=== PATIENT | male | born 1970 | race Caucasian/White ===

== ENCOUNTER 2017-09-28 11:39 | Emergency (ER) | payer OTHER ==
[2017-09-28 12:08] VITALS: BP 137/90; PULSE 73; TEMP 98.3; BMI 22.1
--- NOTE | 2017-09-28 14:08 | PDOC ---
History of Present Illness - General Chief Complaint: Wound Stated Complaint: ABSCESS BOIL Time Seen by Provider: 09/28/17 13:46 History Source: Patient Exam Limitations: No Limitations - History of Present Illness Initial Comments: 09/28/17 14:21 She came for evaluation of abscess to right posterior neck x 3 days, some fevers and pain. Had admission for [facility] last year and was worried was same type of infection. Timing/Duration: reports: getting worse Severity: Yes: mild, moderate Location: reports: other (neck ) Respiratory Risk Factors: reports: no cause identified Associated Symptoms: reports: fever Past History - Travel Traveled outside of the country in the last 30 days: No Close contact w/someone who was outside of country & ill: No - Past Medical History Allergies/Adverse Reactions: Allergies Allergy/AdvReac Type Severity Reaction Status Date / Time Penicillins Allergy Hives Verified 09/28/17 12:08 Home Medications: Ambulatory Orders Meloxicam [Mobic] 15 mg PO DAILY 03/12/16 Sulfamethoxazole/Trimethoprim [Bactrim *Ds*] 1 each PO BID #14 tablet 09/28/17 Anemia: No Asthma: No Cancer: (H/O BRAIN TUMOR) Cardiac Disorders: Yes CVA: No COPD: No CHF: No Dementia: Yes Diabetes: No GI Disorders: No Disorders: No HTN: Yes Hypercholesterolemia: Yes Liver Disease: No Seizures: Yes Thyroid Disease: No - Surgical History Abdominal Surgery: No Appendectomy: No Cardiac Surgery: No Cholecystectomy: No Lung Surgery: No Neurologic Surgery: No Orthopedic Surgery: Yes (left knee ARTHROSCOPY) - Suicide/Smoking/Psychosocial Hx Smoking History: Former smoker Have you smoked in the past 12 months: No If you are a former smoker, when did you quit?: 12 YEARS Information on smoking cessation initiated: No Hx Alcohol Use: No Drug/Substance Use Hx: No Substance Use Type: None Hx Substance Use Treatment: No Review of Systems - Review of Systems Able to Perform ROS?: Yes Is the patient limited Azerbaijani proficient: Yes Constitutional: Yes: Symptoms Reported, See HPI, Fever, Malaise HEENTM: No: Symptoms Reported Respiratory: No: Symptoms reported Integumentary: Yes: Symptoms Reported, See HPI, Change in Hair/Nails, Lesions ( painful fluctuant lesion to right posterior neck at the hairline) Neurological: Yes: Symptoms reported, See HPI All Other Systems: Reviewed and Negative *Physical Exam - Vital Signs Last Vital Signs Temp Pulse Resp BP Pulse Ox 98.3 F 73 12 137/90 100 09/28/17 12:05 09/28/17 12:05 09/28/17 12:05 09/28/17 12:05 09/28/17 12:05 - Physical Exam General Appearance: Yes: Nourished, Appropriately Dressed, Apparent Distress, Mild Distress HEENT: positive: PATTIE, TMs Normal, Pharynx Normal, Nasal Congestion, Rhinorrhea. negative: Sinus Tenderness Neck: positive: Tender, Lymphadenopathy (R), Lymphadenopathy (L) Respiratory/Chest: positive: Lungs Clear Cardiovascular: positive: Regular Rate Gastrointestinal/Abdominal: positive: Normal Bowel Sounds, Soft Musculoskeletal: positive: Normal Inspection. 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 intact, Fully Oriented, Alert, Normal Mood/ Affect, Normal Response Procedures - Incision and Drainage I&D Site: Right: Other (posterior neck) Anesthesia: 1% Lidocaine Blade Size: 11 Iodinated Packin/4 in Complications: none Dressing: Yes Progress Note - Progress Note Progress Note: Abscess to right neck, incised and drained, packed with iodoform gauze, started on Bactrim *DC/Admit/Observation/Transfer Diagnosis at time of Disposition: Abscess - Discharge Dispostion Disposition: HOME Condition at time of disposition: Stable Admit: No - Referrals Referrals: Lakia Grewal MD [Primary Care Provider] - - Patient Instructions Printed Discharge Instructions: DI for Skin Abscess Additional Instructions: Rest, keep area elevated. Avoid strenuous activity or exercise until wound is healed Use hot soaks to area to bring more blood to the surface and encourage drainage May change dressings as needed to keep clean - trying to avoid removal of packing for 2 days. If packing needs to be changed, return to emergency department or with your followup physician for wound care and evaluation and repacking as needed If packing needs to be removed, then in 2 days, while in the shower remove dressing and quickly pull the packing taken out. Allow water from shower to wash area thoroughly for 2-3 minutes, and pat dry upon exit of shower and replace dressing. Change his dressing daily until the wound is completely healed. May use Tylenol or Motrin for mild pain relief Use stronger medications as directed and prescribed Continue all medications as prescribed Followup with private physician in 2-3 days for wound check Return to emergency Department for worsening swelling, pain, redness, fevers as needed - Post Discharge Activity
[2017-09-28] MEDS ORDERED: SULFAMETHOXAZOLE/TRIMETHOPRIM 800MG/160MG D.S. TABLET PO ONE (14:37)
[2017-09-28] MEDS ORDERED: IBUPROFEN 400 MG TABLET (FP) PO ONE ×2 (14:37→14:47)
[2017-09-28] MEDS ORDERED: SULFAMETHOXAZOLE/TRIMETHOPRIM 800MG/160MG D.S. TABLET ONE (14:47)
== END 2017-09-28 14:59 | disposition home or self-care (01) ==
LOC: JERFT 11:39
PROC: 0J940ZZ Drainage of Right Neck Subcutaneous Tissue and Fascia, Open Approach (ICD-10-PCS; principal; 2017-09-28)
DX: L02.11 Cutaneous abscess of neck (principal)
CPT/HCPCS: 10060; 99281-25

== ENCOUNTER 2017-09-30 10:06 | Emergency (ER) | payer OTHER ==
[2017-09-30 10:25] VITALS: BP 111/77; PULSE 85; TEMP 98; BMI 22.3
--- NOTE | 2017-09-30 12:07 | PDOC ---
History of Present Illness - General Chief Complaint: Revisit,Wound Recheck Stated Complaint: REVISIT/ PACKAGE DRESSING Time Seen by Provider: 09/30/17 11:51 History Source: Patient Exam Limitations: No Limitations - History of Present Illness Initial Comments: 09/30/17 12:23 47-year-old male presents the ED for the wound check. Patient states had an I&D done with packing in here for removal. Patient states continue to take the Bactrim as prescribed and denies fever, pain and states symptoms are improving. Severity: Yes: mild Associated Symptoms: reports: denies symptoms Past History - Travel Traveled outside of the country in the last 30 days: No - Past Medical History Allergies/Adverse Reactions: Allergies Allergy/AdvReac Type Severity Reaction Status Date / Time Penicillins Allergy Hives Verified 09/30/17 10:21 Home Medications: Ambulatory Orders Meloxicam [Mobic] 15 mg PO DAILY 03/12/16 Sulfamethoxazole/Trimethoprim [Bactrim *Ds*] 1 each PO BID #14 tablet 09/28/17 Anemia: No Asthma: No Cancer: (H/O BRAIN TUMOR) Cardiac Disorders: Yes CVA: No COPD: No CHF: No Dementia: Yes Diabetes: No GI Disorders: No Disorders: No HTN: Yes Hypercholesterolemia: Yes Liver Disease: No Seizures: Yes Thyroid Disease: No - Surgical History Abdominal Surgery: No Appendectomy: No Cardiac Surgery: No Cholecystectomy: No Lung Surgery: No Neurologic Surgery: No Orthopedic Surgery: Yes (left knee ARTHROSCOPY) - Suicide/Smoking/Psychosocial Hx Smoking History: Former smoker Have you smoked in the past 12 months: No If you are a former smoker, when did you quit?: 12 YEARS Information on smoking cessation initiated: No Hx Alcohol Use: No Drug/Substance Use Hx: No Substance Use Type: None Hx Substance Use Treatment: No Patient Lives Alone: No Review of Systems - Review of Systems Able to Perform ROS?: Yes Constitutional: No: Symptoms Reported HEENTM: No: Symptoms Reported Respiratory: No: Symptoms reported Musculoskeletal: No: Symptoms Reported Integumentary: No: Symptoms Reported Neurological: No: Symptoms reported *Physical Exam - Vital Signs Last Vital Signs Temp Pulse Resp BP Pulse Ox 98 F 85 19 111/77 97 09/30/17 10:21 09/30/17 10:21 09/30/17 10:21 09/30/17 10:21 09/30/17 10:21 - Physical Exam General Appearance: Yes: Nourished, Appropriately Dressed. No: Apparent Distress Neck: positive: Supple. negative: Lymphadenopathy (R), Lymphadenopathy (L) Integumentary: positive: Other (Packing removed from right lower cervical wound without difficulty. Surrounding skin pain. No palpable fluctuance no increased warmth no drainage. Shay) Neurologic: positive: Normal Mood/Affect, Motor Strength 5/5 Medical Decision Making - Medical Decision Making 09/30/17 12:26 Patient here for wound check to the right lower neck. Patient has no complaints presently. Area cleansed with normal saline and placed cause with paper tape to area. Patient understands to clean the area daily and given enough supplies to continue this for the next 7 days. Patient also understands to continue his antibiotics and to return to ED if he develops any fever, swelling or drainage from the site. *DC/Admit/Observation/Transfer Diagnosis at time of Disposition: Open wound of neck Qualifiers: Encounter type: sequela Qualified Code(s): S11.90XS - Unspecified open wound of unspecified part of neck, sequela - Discharge Dispostion Disposition: HOME Condition at time of disposition: Improved - Referrals Referrals: Lakia Grewal MD [Primary Care Provider] - - Patient Instructions Printed Discharge Instructions: DI for Wound Infection Additional Instructions: Please cleanse daily as instructed after bathing in the morning and use supplies given to here in the ER. Understand to return to the ED any given time to develop any swelling redness or drainage from the site. Take antibiotics until completed. - Post Discharge Activity
== END 2017-09-30 12:31 | disposition home or self-care (01) ==
LOC: JERFT 10:06
DX: Z48.01 Encounter for change or removal of surgical wound dressing (principal)
CPT/HCPCS: 99281-25

== ENCOUNTER 2018-01-01 11:45 | Emergency (ER) | payer OTHER ==
[2018-01-01 11:53] VITALS: BP 122/80; PULSE 91; TEMP 98.2; BMI 18.2
--- NOTE | 2018-01-01 12:18 | PDOC ---
History of Present Illness - General Chief Complaint: Headache Stated Complaint: HEADACHES Time Seen by Provider: 01/01/18 12:03 History Source: Patient Exam Limitations: No Limitations - History of Present Illness Initial Comments: 01/01/18 13:26 Patient is a 47-year-old male with past medical history of brain tumor, who presents emergency department today with 2 weeks of headache and facial pain. Patient states he was seen by his primary care doctor and diagnosed with a sinus infection. He was given fluticasone nasal spray and discharged home. He states that the spray has not helped and is giving him bloody noses. Denies fevers, chills, lightheadedness, dizziness, weakness, numbness and tingling. Past History - Travel Traveled outside of the country in the last 30 days: No Close contact w/someone who was outside of country & ill: No - Past Medical History Allergies/Adverse Reactions: Allergies Allergy/AdvReac Type Severity Reaction Status Date / Time Penicillins Allergy Hives Verified 01/01/18 11:53 Home Medications: Ambulatory Orders Doxycycline Hyclate 100 mg PO BID #14 tablet 01/01/18 Ibuprofen 600 mg PO TID #21 tablet 01/01/18 Anemia: No Asthma: No Cancer: (H/O BRAIN TUMOR) Cardiac Disorders: Yes CVA: No COPD: No CHF: No Dementia: Yes Diabetes: No GI Disorders: No Disorders: No HTN: Yes Hypercholesterolemia: Yes Liver Disease: No Seizures: Yes Thyroid Disease: No - Surgical History Abdominal Surgery: No Appendectomy: No Cardiac Surgery: No Cholecystectomy: No Lung Surgery: No Neurologic Surgery: No Orthopedic Surgery: Yes (left knee ARTHROSCOPY) - Suicide/Smoking/Psychosocial Hx Smoking History: Never smoked Have you smoked in the past 12 months: No If you are a former smoker, when did you quit?: 12 YEARS Information on smoking cessation initiated: No Hx Alcohol Use: No Drug/Substance Use Hx: No Substance Use Type: None Hx Substance Use Treatment: No Review of Systems - Review of Systems Able to Perform ROS?: Yes Comments:: 01/01/18 12:17 CONSTITUTIONAL: Absent: fever, chills, diaphoresis, generalized weakness, malaise, loss of appetite HEENT: Present: facial pain Absent: rhinorrhea, nasal congestion, throat pain, throat swelling, difficulty swallowing, mouth swelling, ear pain, eye pain, visual Changes CARDIOVASCULAR: Absent: chest pain, loss of consciousness, palpitations, irregular heart rate, peripheral edema RESPIRATORY: Absent: cough, shortness of breath, dyspnea with exertion, orthopnea, wheezing, stridor, hemoptysis SKIN: Absent: rash, itching, pallor NEUROLOGIC: Present: headache Absent: focal weakness or paresthesias, dizziness, unsteady gait, seizure, mental status changes, bladder or bowel incontinence Is the patient limited Pashto proficient: No *Physical Exam - Vital Signs Last Vital Signs Temp Pulse Resp BP Pulse Ox 98.2 F 91 H 16 122/80 100 01/01/18 11:49 01/01/18 11:49 01/01/18 11:49 01/01/18 11:49 01/01/18 11:49 - Physical Exam Comments: 01/01/18 12:18 GENERAL: Well developed, well nourished. Awake and alert. No acute distress. HEENT: Normocephalic, atraumatic. PERRLA, EOMI. No conjunctival pallor. Sclera are non- icteric. Moist mucous membranes. Oropharynx is clear. TTP of the frontal and maxillary sinuses NECK: Supple. Full ROM. No JVD. Carotid pulses 2+ and symmetric, without bruits. No thyromegaly. No lymphadenopathy. SKIN: Warm and dry. Normal capillary refill. No rashes. No jaundice. NEUROLOGICAL: Alert, awake, appropriate. Cranial nerves 2-12 intact. No deficits to light touch and temperature in face, upper extremities and lower extremities. No motor deficits in the in face, upper extremities and lower extremities. Normoreflexic in the upper and lower extremities. Normal speech. Toes are down- going bilaterally. Gait is normal without ataxia. PSYCHIATRIC: Cooperative. Good eye contact. Appropriate mood and affect. Medical Decision Making - Medical Decision Making 01/01/18 13:26 Patient is a 47-year-old male past medical history of a brain tumor, who presents to the emergency department with headache for 2 weeks. Currently being treated with fluticasone nasal spray for sinus infection. Head CT obtained and shows complete right opacification of the right maxillary sinus. We will treat for sinus infection at this time. Patient ALLERGIC to penicillin so we will treat with Doxy. Return precautions given. Patient worsens all discharge instructions and all questions were answered. *DC/Admit/Observation/Transfer Diagnosis at time of Disposition: Sinusitis Qualifiers: Sinusitis location: maxillary Chronicity: acute Recurrence: non-recurrent Qualified Code(s): J01.00 - Acute maxillary sinusitis, unspecified - Discharge Dispostion Disposition: HOME Condition at time of disposition: Stable Decision to Admit order: No - Prescriptions Prescriptions: Doxycycline Hyclate 100 mg PO BID #14 tablet - Referrals Referrals: Lakia Grewal MD [Primary Care Provider] - - Patient Instructions Printed Discharge Instructions: DI for Sinusitis Additional Instructions: You have a sinus infection. Please take the antibiotics as prescribed. A prescription has been sent to your pharmacy. Please continue using the fluticasone nasal spray at home. Use it as previously directed. In addition to the fluticasone please by normal saline nasal spray to help prevent nosebleeds. You may buy this over the counter. You may take Motrin 600 mg every 8 hours as needed for headache. Please follow-up with your primary care doctor this week. Return to the emergency department if you have worsening headaches, fevers, chills, lightheadedness, dizziness, or if you have any changes in your symptoms. Usted tiene francis infeccin sinusal. Por favor tome los antibiticos segn lo prescrito. Se acevedo enviado francis receta a kendall farmacia. Contine usando el aerosol nasal fluticasone en casa. selo arleen se indic anteriormente. Adems de la fluticasona, por favor, use un aerosol nasal de solucin salina para ayudar a prevenir las hemorragias nasales. Puede comprar esto en el mostrador. Puede madison Motrin 600 mg cada 8 horas, segn sea necesario para el dolor de nehal. Por favor paz un seguimiento con kendall mdico de atencin primaria esta semana. Regrese al departamento de emergencias si tiene empeoramiento de srinivasa de nehal, fiebre, escalofros, aturdimiento, mareos o si tiene algn cambio en nacho sntomas. Print Language: MAORI - Post Discharge Activity
[2018-01-01] MEDS ORDERED: ACETAMINOPHEN 325 MG TABLET (FP) PO ONE (12:38)
[2018-01-01] MEDS ORDERED: ACETAMINOPHEN 325 MG TABLET (FP) ONE (12:42)
== END 2018-01-01 13:43 | disposition home or self-care (01) ==
LOC: JERFT 11:45
DX: J01.00 Acute maxillary sinusitis, unspecified (principal); I10 Essential (primary) hypertension; E78.00 Pure hypercholesterolemia, unspecified; F03.90 Unspecified dementia, unspecified severity, without behavioral disturbance, psychotic disturbance, mood disturbance, and anxiety; Z85.841 Personal history of malignant neoplasm of brain
CPT/HCPCS: 70450-TC; 99281-25

== ENCOUNTER 2018-06-01 07:31 | Emergency (ER) | payer OTHER ==
[2018-06-01 07:49] VITALS: BP 150/81; PULSE 59; TEMP 98; BMI 23.6
--- NOTE | 2018-06-01 08:10 | PDOC ---
History of Present Illness - General Chief Complaint: Wound Stated Complaint: BITE Time Seen by Provider: 06/01/18 07:44 History Source: Patient, Security Attendant Used Exam Limitations: Language Barrier - History of Present Illness Initial Comments: 06/01/18 08:07 Pt is a 48yo m with PMH of epilepsy, glaucoma, arthritis, sinusitis presenting to ED with complaints of R sided scalp swelling and itching x 1 week. Pt says he has a lesion on the R side of his head associated with itching and R posterior ear pain. He does not know how it started. No one else in the household is having these symptoms and he does not have lesions elsewhere. He has not applied any topical products. Denies changes in vision, hearing, throat pain, fevers, chills, chest pain, SOB, abdominal pain, n/v/d. PCP: Pawel PMH: see hpi PSH: none Meds: Allergies: PCN Past History - Past Medical History Allergies/Adverse Reactions: Allergies Allergy/AdvReac Type Severity Reaction Status Date / Time Penicillins Allergy Hives Verified 06/01/18 07:49 Home Medications: Ambulatory Orders Doxycycline Hyclate 100 mg PO BID #14 capsule 01/01/18 Ibuprofen 600 mg PO TID #21 tablet 01/01/18 Sulfamethoxazole/Trimethoprim [Bactrim Ds -] 1 tab PO BID #14 tablet 06/01/18 Anemia: No Asthma: No Cancer: (H/O BRAIN TUMOR) Cardiac Disorders: Yes CVA: No COPD: No CHF: No Dementia: Yes Diabetes: No GI Disorders: No Disorders: No HTN: Yes Hypercholesterolemia: Yes Liver Disease: No Seizures: Yes Thyroid Disease: No - Surgical History Abdominal Surgery: No Appendectomy: No Cardiac Surgery: No Cholecystectomy: No Lung Surgery: No Neurologic Surgery: No Orthopedic Surgery: Yes (left knee ARTHROSCOPY) - Suicide/Smoking/Psychosocial Hx Smoking History: Never smoked Have you smoked in the past 12 months: No If you are a former smoker, when did you quit?: 12 YEARS Information on smoking cessation initiated: No Hx Alcohol Use: No Drug/Substance Use Hx: No Substance Use Type: None Hx Substance Use Treatment: No Review of Systems - Review of Systems Constitutional: No: Symptoms Reported HEENTM: Yes: Other (posterior ear pain). No: Eye Pain, Recent change in vision , Ear Pain, Ear Discharge, Nose Pain, Throat Pain Respiratory: No: Symptoms reported, Cough, Shortness of Breath Cardiac (ROS): No: Symptoms Reported ABD/GI: No: Symptoms Reported : No: Symptoms Reported Musculoskeletal: No: Symptoms Reported Integumentary: Yes: See HPI, Lesions (on R side of head associated with swelling and pruritis ) Neurological: No: Symptoms reported *Physical Exam - Vital Signs Last Vital Signs Temp Pulse Resp BP Pulse Ox 98.0 F 59 L 16 150/81 100 06/01/18 07:43 06/01/18 07:43 06/01/18 07:43 06/01/18 07:43 06/01/18 07:43 - Physical Exam General Appearance: Yes: Nourished, Appropriately Dressed. No: Apparent Distress HEENT: positive: EOMI, PATTIE, TMs Normal, Pharynx Normal Neck: positive: Trachea midline, Supple. negative: Lymphadenopathy (R), Lymphadenopathy (L) Respiratory/Chest: positive: Lungs Clear, Normal Breath Sounds. negative: Crackles, Rales, Rhonchi, Stridor Cardiovascular: positive: Regular Rhythm, Regular Rate, S1, S2. negative: Edema , JVD, Murmur Vascular Pulses: Carotid (R): 2+, Carotid (L): 2+, Dorsalis-Pedis (R): 2+, Doralis-Pedis (L): 2+ Gastrointestinal/Abdominal: positive: Normal Bowel Sounds, Soft. negative: Distended, Guarding, Rebound Musculoskeletal: positive: Normal Inspection Extremity: positive: Normal Capillary Refill Integumentary: positive: Normal Color, Dry, Warm, Other (raised, scabbing lesion to anterior R head around 2-3cm not erythematous, drainage of pus. ). 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 Vitals: wnl PE: raised scabbed 2-3cm lesion on R side of head with drainage of pus when pressure applied. no need for labs at this time, wound is superficial, not deep. no lesions elsewhere. expressed purulent drainage when pressure applied. drained as much as possible. Applied gauze. Pt given 1 dose of Bactrim in ED. Given 7 day course sent to pharmacy. Pt advised to see early childhood director. Can only get referral through PCP. PT going to pmd today anyway, asked to get derm referral. Pt can be dc home. pt agreed to plan. Advised to come back in 2 days for wound check. Given return precautions. *DC/Admit/Observation/Transfer Diagnosis at time of Disposition: Skin lesion - Discharge Dispostion Disposition: HOME Condition at time of disposition: Good Decision to Admit order: No - Prescriptions Prescriptions: Sulfamethoxazole/Trimethoprim [Bactrim Ds -] 1 tab PO BID #14 tablet - Referrals Referrals: Lakia Grewal MD [Primary Care Provider] - - Patient Instructions Additional Instructions: Lo vieron hoy aqu para evaluar francis lesin de piel en kendall nehal. yo Le sugiero que realice un seguimiento con un dermatlogo o kendall mdico de atencin primaria. Dado que tiene francis sandy con kendall mdico, asegrese de obtener francis derivacin a un dermatlogo. Dr. Crockett Se envi un antibitico a kendall farmacia. Por favor tome arleen se indica. Regrese a la estephania de emergencias en dos kim para francis revisin de la herida. Regrese a la estephania de emergencias si: la herida empeora, desarrolla fiebre o si se presenta algn sntoma nuevo. Shin You were seen here today for evaluation of a skin lesion on your head. I I suggest you follow up with a early childhood director or your primary care doctor. Since you have an appointment with your doctor, make sure you get a referral to a dermatogist. An antibiotic was sent to your pharmacy. Please take as directed. Come back to the emergency room in two days for a wound check. Come back to the emergency room if: the wound gets worse, you develop fever, or if any new concerning symptom develops. Thank you - Post Discharge Activity
[2018-06-01] MEDS ORDERED: SULFAMETHOXAZOLE/TRIMETHOPRIM 800MG/160MG D.S. TABLET PO ONE (08:22)
[2018-06-01] MEDS ORDERED: SULFAMETHOXAZOLE/TRIMETHOPRIM 800MG/160MG D.S. TABLET ONE (08:26)
--- NOTE | 2018-06-01 08:28 | PDOC ---
Attending Attestation - Resident Resident Name: Peggy Mcmahan - ED Attending Attestation I have performed the following: I have examined & evaluated the patient, The case was reviewed & discussed with the resident, I agree w/resident's findings & plan, Exceptions are as noted - HPI HPI: 06/01/18 08:23 48 M with epilepsy, glaucoma, arthritis, presenting to ED with complaints of lesion on R side of scalp x 1 week. Pt reports that he first noticed it last week. Denies any injury to the area. He states that it is itchy, so he has been scratching it. Over the past several days, it has become more swollen and red. He also notes scabbing over the lesion. Denies F/C. Denies any other lesions anywhere else. - Physicial Exam PE: 06/01/18 08:25 GENERAL: Awake, alert, and fully oriented, in no acute distress. HEAD: No signs of trauma EYES: PERRLA, EOMI, sclera anicteric, conjunctiva clear ENT: Auricles normal inspection, hearing grossly normal, nares patent, oropharynx clear without exudates. Moist mucosa NECK: Nontender, no stepoffs, Normal ROM, supple, no lymphadenopathy, JVD, or masses LUNGS: Breath sounds equal, clear to auscultation bilaterally. No wheezes, and no crackles HEART: Regular rate and rhythm, normal S1 and S2, no murmurs, rubs or gallops ABDOMEN: Soft, nontender, normoactive bowel sounds. No guarding, no rebound. No masses EXTREMITIES: Normal range of motion, no edema. No clubbing or cyanosis. No cords, erythema, or tenderness NEUROLOGICAL: Cranial nerves II through XII intact. 5/5 strength and sensation in all extremities, Normal speech, normal gait, normal cerebellar function SKIN: + 1 cm scabbed lesion with surrounding erythema, + scant amount of purulent discharge - Medical Decision Making 06/01/18 08:26 48 M with single scabbed lesion with purulent discharge to R scalp. Suspect insect bite vs folliculitis that is now super-infected. - Bactrim - Wound check in 48 hours - F/u Derm Pt is well appearing, with normal vitals. Clinically stable for DC at this time. I discussed the physical exam findings, ancillary test results and final diagnoses with the patient. I answered all of the patient's questions. The patient was satisfied with the care received and felt comfortable with the discharge plan and treatment plan. The patient agrees to follow up with the primary care physician within 24-72 hours.
== END 2018-06-01 08:33 | disposition home or self-care (01) ==
LOC: JER 07:31
DX: L98.8 Other specified disorders of the skin and subcutaneous tissue (principal); I10 Essential (primary) hypertension; E78.00 Pure hypercholesterolemia, unspecified; G40.909 Epilepsy, unspecified, not intractable, without status epilepticus; Z86.011 Personal history of benign neoplasm of the brain
CPT/HCPCS: 99281-25

== ENCOUNTER 2018-07-11 19:10 | Emergency (ER) | payer OTHER ==
[2018-07-11 19:17] VITALS: BP 133/89; PULSE 81; TEMP 98.6; BMI 26.1
--- NOTE | 2018-07-11 19:41 | PDOC ---
History of Present Illness - General Chief Complaint: Redness To Affected Area Stated Complaint: FALL/HAND INJURY Time Seen by Provider: 07/11/18 19:40 History Source: Patient Exam Limitations: No Limitations - History of Present Illness Initial Comments: 07/11/18 20:03 48 year old male with PMH HTN, arthritis presented to ED for redness to right hand since yesterday. Pt stated he was bit by an unknown insect yesterday, and since then has had redness, swelling and itching of his hand. He denied numbness /tingling, decreased ability to move fingers, nausea, vomiting, abdominal pain, lightheadedness, chest pain, shortness of breath. Pt admitted to subjective fever, but did not take his temperature at home. Past History - Past Medical History Allergies/Adverse Reactions: Allergies Allergy/AdvReac Type Severity Reaction Status Date / Time Penicillins Allergy Hives Verified 07/11/18 19:17 Home Medications: Ambulatory Orders Sulfamethoxazole/Trimethoprim [Bactrim Ds -] 1 tab PO BID #14 tablet 07/11/18 Anemia: No Asthma: No Cancer: (H/O BRAIN TUMOR) Cardiac Disorders: Yes CVA: No COPD: No CHF: No Dementia: Yes Diabetes: No GI Disorders: No Disorders: No HTN: Yes Hypercholesterolemia: Yes Liver Disease: No Seizures: Yes Thyroid Disease: No - Surgical History Abdominal Surgery: No Appendectomy: No Cardiac Surgery: No Cholecystectomy: No Lung Surgery: No Neurologic Surgery: No Orthopedic Surgery: Yes (left knee ARTHROSCOPY) - Suicide/Smoking/Psychosocial Hx Smoking History: Never smoked Have you smoked in the past 12 months: No If you are a former smoker, when did you quit?: 12 YEARS Hx Alcohol Use: No Drug/Substance Use Hx: No Substance Use Type: None Hx Substance Use Treatment: No Review of Systems - Review of Systems Able to Perform ROS?: Yes Comments:: 07/11/18 20:06 General: admitted to subjective fever. denied generalized weakness. HEENT: denied sore throat, rhinorrhea, ear pain. Heart: denied chest pain, palpitations, syncope, lower extremity swelling, diaphoresis. Respiratory: denied shortness of breath, cough, sputum production, hemoptysis. Abdomen: denied abdominal pain, nausea, vomiting, diarrhea, constipation, blood in stool. : denied dysuria, increased urinary frequency, hematuria, urinary incontinence , flank pain. Back: denied back pain. Musculoskeletal: admitted to right hand pain. Neurological: denied headache, dizziness, numbness, tingling, weakness. Skin: admitted to rash. *Physical Exam - Vital Signs Last Vital Signs Temp Pulse Resp BP Pulse Ox 98.6 F 81 18 133/89 99 07/11/18 19:14 07/11/18 19:14 07/11/18 19:14 07/11/18 19:14 07/11/18 19:14 - Physical Exam Comments: 07/11/18 20:07 Constitutional: Well-nourished, Well-developed, appearing stated age. HEENT: head is normocephalic, atraumatic. EOMI. PERRLA. Neck: supple. Full ROM. Heart: regular rhythm. no murmurs, rubs or gallops. Lungs: clear to auscultation bilaterally. no crackles, rhonchi or wheezing. no stridor. Abdomen: soft, nontender. normal bowel sounds. no rebound, guarding, masses. Extremities: two insect bite wounds to dorsum of right hand. 6x6 cm well demarcated area of erythema, that is tender to palpation. 2x2 cm central area of fluctuance and induration. 2+ radial pulse bilaterally. full sensation to bilateral fingers. no pain upon passive or active flexion/extension of right hand fingers. no swelling to right hand fingers. no pain along palpation of flexor tendon to all fingers of right hand. full ROM all fingers right hand. Neurological: CN 2-12 grossly intact. Moves all four extremities. Psych: awake, alert, oriented x3. Follows commands. Answers questions appropriately. Moderate Sedation - Procedure Monitoring Vital Signs: Procedure Monitoring Vital Signs Temperature 98.6 F 07/11/18 19:14 Pulse Rate 81 07/11/18 19:14 Respiratory Rate 18 07/11/18 19:14 Blood Pressure 133/89 07/11/18 19:14 O2 Sat by Pulse Oximetry (%) 99 07/11/18 19:14 Procedures - Incision and Drainage I&D Site: Right: Other (hand) Betadine cleansed: Yes Anesthesia: 1% Lidocaine Volume(ml): 6 Blade Size: 11 Attempts: 1 Plain Packing: No Complications: none Dressing: Yes Progress: 07/11/18 21:19 Minimal purlent material expressed. Blood expressed. ED Treatment Course - LABORATORY CBC & Chemistry Diagram: 07/11/18 20:07 07/11/18 20:07 Medical Decision Making - Medical Decision Making 07/11/18 20:09 48 year old male with above PMH presented to ED for right hand erythema s/p insect bites. Initial Vital Signs Temp Pulse Resp BP Pulse Ox 98.6 F 81 18 133/89 99 07/11/18 19:14 07/11/18 19:14 07/11/18 19:14 07/11/18 19:14 07/11/18 19:14 Afebrile. No tachycardia. No tachypnea. Mild hypertension. No hypoxia on room air. Pending CBC, CMP, coags, lactate. IV Clindamycin ordered. 07/11/18 20:31 Bedside ultrasound of right hand performed: - Cobblestoning noted. - 0.5x0.2 cm hypodense fluid collection noted consistent with abscess. Will drain abscess. 07/11/18 20:58 I&D performed, see above note. - Pt tolerated the procedure well. - Wound culture obtained and sent to lab CBC WBC 6.0 K/mm3 (4.0-10.0) 07/11/18 20:07 RBC 5.30 M/mm3 (4.00-5.60) 07/11/18 20:07 Hgb 14.5 GM/dL (11.7-16.9) 07/11/18 20:07 Hct 44.1 % (35.4-49) 07/11/18 20:07 MCV 83.2 fl (80-96) 07/11/18 20:07 MCH 27.3 pg (25.7-33.7) 07/11/18 20:07 MCHC 32.8 g/dl (32.0-35.9) 07/11/18 20:07 RDW 14.2 % (11.9-15.9) 07/11/18 20:07 Plt Count 185 K/MM3 (134-434) D 07/11/18 20:07 MPV 9.0 fl (7.5-11.1) 07/11/18 20:07 Absolute Neuts (auto) 4.5 K/mm3 (1.5-8.0) 07/11/18 20:07 Neutrophils % 75.8 % (42.8-82.8) 07/11/18 20:07 Lymphocytes % 16.5 % (8-40) D 07/11/18 20:07 Monocytes % 6.7 % (3.8-10.2) 07/11/18 20:07 Eosinophils % 0.5 % (0-4.5) 07/11/18 20:07 Basophils % 0.5 % (0-2.0) 07/11/18 20:07 Nucleated RBC % 0 % (0-0) 07/11/18 20:07 No leukocytosis. No anemia. CMP Sodium 138 mmol/L (136-145) 07/11/18 20:07 Potassium 4.0 mmol/L (3.5-5.1) 07/11/18 20:07 Chloride 101 mmol/L (98-107) 07/11/18 20:07 Carbon Dioxide 30 mmol/L (21-32) 07/11/18 20:07 Anion Gap 8 MMOL/L (8-16) 07/11/18 20:07 BUN 17 mg/dL (7-18) 07/11/18 20:07 Creatinine 0.9 mg/dL (0.55-1.3) 07/11/18 20:07 Creat Clearance w eGFR > 60 (>60) 07/11/18 20:07 Random Glucose 96 mg/dL (74-106) 07/11/18 20:07 Lactic Acid 1.1 mmol/L (0.4-2.0) 07/11/18 20:07 Calcium 8.7 mg/dL (8.5-10.1) 07/11/18 20:07 Total Bilirubin 0.6 mg/dL (0.2-1) 07/11/18 20:07 AST 16 U/L (15-37) 07/11/18 20:07 ALT 20 U/L (13-61) 07/11/18 20:07 Alkaline Phosphatase 83 U/L (45-117) 07/11/18 20:07 Total Protein 7.4 g/dl (6.4-8.2) 07/11/18 20:07 Albumin 4.1 g/dl (3.4-5.0) 07/11/18 20:07 Normal electrolytes. No CHON. No LFT abnormalities. No lactic acidosis. INR, PTT INR 1.05 (0.83-1.09) 07/11/18 20:07 Pt to be discharged on Bactrim. Pt informed to return to ED in 2 days for wound check. *DC/Admit/Observation/Transfer Diagnosis at time of Disposition: Cellulitis, Abscess - Discharge Dispostion Disposition: HOME Condition at time of disposition: Improved Decision to Admit order: No - Prescriptions Prescriptions: Sulfamethoxazole/Trimethoprim [Bactrim Ds -] 1 tab PO BID #14 tablet - Referrals - Patient Instructions Printed Discharge Instructions: DI for Cellulitis -- Adult, DI for Incision and Drainage of a Skin Abscess Additional Instructions: I have sent a prescription for an antibiotic to your pharmacy, pick it up as soon as possible. Take pills as advised on label, do not miss any doses. Return to the Emergency Department in 2 days for a wound check. Keep the dressing on your hand until you return. Do not take it off. Do not get it wet. Shower with a plastic bag or trash bag over your hand. Return sooner if the redness is getting bigger, increasing pain, fever, chills, vomiting, lightheadedness like you may pass out, chest pain, shortness of breath, discharge from wound site or any other new, worsening or concerning symptoms. Follow up with your primary care doctor in 1-2 days, call their office Friday morning and ask for the soonest appointment. He enviado francis receta para un antibitico a kendall farmacia, recjala gatica pronto arleen sea posible. De [place] las pastillas arleen se recomienda en la etiqueta, no se pierda ninguna dosis. Regrese al [facility] en 2 kim para francis revisin de la herida. Mantenga el aderezo en kendall mano hasta que regrese. No te lo quites. No lo mojes. Dchese con francis bolsa de plstico o bolsa de basura en la mano. Regrese antes si el enrojecimiento aumenta, aumenta el dolor, la fiebre, los escalofros, los vmitos, el mareo arleen si se desmayara , el dolor en el pecho, la falta de aliento, la secrecin del sitio de la herida o cualquier otro sntoma nuevo, que empeore o relacionado con los sntomas. Jesús un seguimiento con kendall mdico de atencin primaria en 1 o 2 kim, llame a kendall consultorio el mago por la maana y solicite la sandy ms rpida. - Post Discharge Activity Forms/Work/School Notes: Back to Work
--- NOTE | 2018-07-11 19:50 | PDOC ---
Attending Attestation - HPI HPI: 07/11/18 20:04 The patient is a 48 year old male with a significant PMH of HTN and HLD who presents to the emergency department with redness, swelling, and itchy to the right hand. Patient reports he had an insect bite, was unable to see the insect but felt it. Patient denies taking any medications. The patient denies chest pain, shortness of breath, headache and dizziness. Denies fever, chills, nausea, vomit, diarrhea and constipation. Denies dysuria, frequency, urgency and hematuria. Allergies: NKA Past surgical history: None reported. Social history: No reported alcohol, drug or cigarette use. 1 <Heaven Sommers - Last Filed: 07/11/18 20:05> - Physicial Exam PE: 07/16/18 07:16 Agree with resident exam. + 3 cm area of erythema to the dorsum of the R hand. Full ROM of all fingers, with very mild erythema of the thumb without tenderness. - Medical Decision Making 07/16/18 07:19 Pt presents to the ED with hand cellulitis. Will treat with antibiotics and have return to the ED in two days for a cellulitis check. <Ana Moya - Last Filed: 07/16/18 07:20>
[2018-07-11] MEDS ORDERED: CLINDAMYCIN 600MG PREMIX IVPB 600 MG/50 ML BAG IVPB ONE ×2 (20:10→20:22)
[2018-07-11 20:25] LABS: BASO % 0.5 % (0-2.0); EOS % 0.5 % (0-4.5); HEMATOCRIT 44.1 % (35.4-49); HEMOGLOBIN 14.5 GM/dL (11.7-16.9); LYMPH % 16.5 % (8-40); MCH 27.3 pg (25.7-33.7); MCHC 32.8 g/dl (32.0-35.9); MEAN CELL VOLUME 83.2 fl (80-96); MONO % 6.7 % (3.8-10.2); NEUT % 75.8 % (42.8-82.8); PLATELET COUNT 185 K/MM3 (134-434); RDW 14.2 % (11.9-15.9)
[2018-07-11] MEDS ORDERED: LIDOCAINE HCL 1%, 10 MG/ML (50 mL VIAL) SQ ONE (20:33)
[2018-07-11 20:44] LABS: INR 1.05 (0.83-1.09); PROTHROMBIN TIME (PATIENT) 12.4 SEC (9.7-13.0)
[2018-07-11 20:49] LABS: ALBUMIN 4.1 g/dl (3.4-5.0); ALK PHOS 83 U/L (45-117); ANION GAP 8 MMOL/L (8-16); BILIRUBIN,TOTAL 0.6 mg/dL (0.2-1); BLOOD UREA NITROGEN 17 mg/dL (7-18); CALCIUM 8.7 mg/dL (8.5-10.1); CHLORIDE 101 mmol/L (98-107); CO2 30 mmol/L (21-32); CREATININE 0.9 mg/dL (0.55-1.3); GLUCOSE,RANDOM 96 mg/dL (74-106); SGOT/AST 16 U/L (15-37); SGPT/ALT 20 U/L (13-61); SODIUM 138 mmol/L (136-145); TOT PROT 7.4 g/dl (6.4-8.2)
[2018-07-11] MEDS ORDERED: ACETAMINOPHEN 500 MG TABLET (FP) PO ONE (21:21)
[2018-07-11] MEDS ORDERED: ACETAMINOPHEN 325 MG TABLET (FP) ONE (21:22)
== END 2018-07-11 22:02 | disposition home or self-care (01) ==
LOC: JER 19:10
PROC: 0J9J0ZZ Drainage of Right Hand Subcutaneous Tissue and Fascia, Open Approach (ICD-10-PCS; principal; 2018-07-11)
PROC: 3E03329 Introduction of Other Anti-infective into Peripheral Vein, Percutaneous Approach (ICD-10-PCS; 2018-07-11)
DX: L02.511 Cutaneous abscess of right hand (principal)
CPT/HCPCS: 10160; 36415; 80053; 83605; 85025; 85610; 85730; 86850; 86900; 86901; 87040; 87070; 87186; 87205; 96365; 99282-25

== ENCOUNTER 2018-07-13 09:11 | Emergency (ER) | payer OTHER ==
[2018-07-13 09:21] VITALS: BP 142/100; PULSE 82; TEMP 98; BMI 26.1
--- NOTE | 2018-07-13 10:38 | PDOC ---
History of Present Illness - General Chief Complaint: Revisit,Wound Recheck Stated Complaint: REVISIT, WOUND CHECK Time Seen by Provider: 07/13/18 09:59 History Source: Patient, Tone Regulator Used (#[id number]) - History of Present Illness Initial Comments: 07/13/18 10:39 Patient with no significant past medical history present for wound check to right hand status post presented 2 days ago with abscess to right hand requiring I&D. Patient was discharged home on Bactrim antibiotics 2 days ago but no pain meds and reports to pain because he does not have anything for pain. Patient has not picked up antibiotics because he reported pharmacy was closed when he was seen 2 days ago. Patient denies drainage or redness to wound site. Patient denies any other symptoms Timing/Duration: other (2 days) Past History - Past Medical History Allergies/Adverse Reactions: Allergies Allergy/AdvReac Type Severity Reaction Status Date / Time Penicillins Allergy Hives Verified 07/13/18 09:20 Home Medications: Ambulatory Orders Sulfamethoxazole/Trimethoprim [Bactrim DS -] 1 tab PO BID #14 tablet 07/11/18 Bacitracin - [Bacitracin Topical Ointment -] 1 applic TP BID #1 tube 07/13/18 Ibuprofen 800 mg PO Q8H PRN #20 tablet 07/13/18 Ibuprofen [Motrin -] 600 mg PO TID PRN 07/13/18 Anemia: No Asthma: No Cancer: (H/O BRAIN TUMOR) Cardiac Disorders: Yes CVA: No COPD: No CHF: No Dementia: Yes Diabetes: No GI Disorders: No Disorders: No HTN: Yes Hypercholesterolemia: Yes Liver Disease: No Seizures: Yes Thyroid Disease: No - Surgical History Abdominal Surgery: No Appendectomy: No Cardiac Surgery: No Cholecystectomy: No Lung Surgery: No Neurologic Surgery: No Orthopedic Surgery: Yes (left knee ARTHROSCOPY) - Immunization History Immunization Up to Date: Yes - Suicide/Smoking/Psychosocial Hx Smoking History: Smoker current status UNK Have you smoked in the past 12 months: No If you are a former smoker, when did you quit?: 12 YEARS Hx Alcohol Use: No Drug/Substance Use Hx: No Substance Use Type: None Hx Substance Use Treatment: No Review of Systems - Review of Systems Able to Perform ROS?: Yes Is the patient limited Colombian proficient: No Constitutional: No: Chills, Fever, Weakness Respiratory: No: Symptoms reported Cardiac (ROS): No: Symptoms Reported ABD/GI: No: Symptoms Reported Musculoskeletal: Yes: See HPI, Muscle Pain (right hand ). No: Joint Swelling, Muscle Weakness, Joint Stiffness Integumentary: Yes: Other (incision to abscess of right hand) All Other Systems: Reviewed and Negative *Physical Exam - Vital Signs Last Vital Signs Temp Pulse Resp BP Pulse Ox 98 F 82 16 142/100 100 07/13/18 09:20 07/13/18 09:20 07/13/18 09:20 07/13/18 09:20 07/13/18 09:20 - Physical Exam General Appearance: Yes: Nourished, Appropriately Dressed. No: Apparent Distress HEENT: positive: Normal ENT Inspection Neck: positive: Supple Respiratory/Chest: positive: Lungs Clear. negative: Respiratory Distress, Accessory Muscle Use Cardiovascular: positive: Regular Rhythm, Regular Rate Gastrointestinal/Abdominal: positive: Flat, Soft Musculoskeletal: positive: Normal Inspection Integumentary: positive: Other (well healing 1cm incisional scar with mild swelling to distal radial-dorsal distal aspect of right hand. no erythema to skin. no drainage from wound site. no evidence of wound infection) Neurologic: positive: Fully Oriented, Normal Mood/Affect, Normal Response, Motor Strength 5/5 Moderate Sedation - Procedure Monitoring Vital Signs: Procedure Monitoring Vital Signs Temperature 98 F 07/13/18 09:20 Pulse Rate 82 07/13/18 09:20 Respiratory Rate 16 07/13/18 09:20 Blood Pressure 142/100 07/13/18 09:20 O2 Sat by Pulse Oximetry (%) 100 07/13/18 09:20 Medical Decision Making - Medical Decision Making 07/13/18 10:41 Patient with no significant past medical history present for wound check to right hand status post presented 2 days ago with abscess to right hand requiring I&D. Patient was discharged home on Bactrim antibiotics 2 days ago but no pain meds and reports to pain because he does not have anything for pain. Patient has not picked up antibiotics because he reported pharmacy was closed when he was seen 2 days ago. Motrin 800mg PO given for pain. exam of wound shows no evidence of wound infection. No Drainage from wound site. patient discharge home to take previously prescribed Bactrim abx with ibuprofen for pain and topical mupirocin with PCP follow-up in 5 days *DC/Admit/Observation/Transfer Diagnosis at time of Disposition: Abscess, Abscess of right hand excluding fingers and thumb - Discharge Dispostion Disposition: HOME Condition at time of disposition: Stable Decision to Admit order: No - Prescriptions Prescriptions: Bacitracin - [Bacitracin Topical Ointment -] 1 applic TP BID #1 tube Ibuprofen 800 mg PO Q8H PRN #20 tablet PRN Reason: pain - Referrals Referrals: Lakia Grewal MD [Primary Care Provider] - - Patient Instructions Printed Discharge Instructions: How to Care for a Surgical Wound Additional Instructions: take medications as prescribed. apply head to right hand 2-3times/day for 5-10 mins until wound is improved. follow-up with primary care in 5 days for follow- up Print Language: AUSTRALIAN - Post Discharge Activity
[2018-07-13] MEDS ORDERED: IBUPROFEN 400 MG TABLET (FP) PO ONE ×2 (10:39→10:42)
== END 2018-07-13 10:53 | disposition home or self-care (01) ==
LOC: JERFT 09:11
DX: Z48.01 Encounter for change or removal of surgical wound dressing (principal)
CPT/HCPCS: 99281-25

== ENCOUNTER 2018-08-28 11:43 | Emergency (ER) | payer OTHER ==
[2018-08-28 12:00] VITALS: BP 117/89; PULSE 76; TEMP 98; BMI 26.4
--- NOTE | 2018-08-28 12:45 | PDOC ---
History of Present Illness - General Chief Complaint: Rash Stated Complaint: HAND INJURY Time Seen by Provider: 08/28/18 12:02 - History of Present Illness Initial Comments: 08/28/18 12:33 48-year-old male presents for evaluation of rash on bilateral hands 3 weeks without systemic symptoms. Past History - Past Medical History Allergies/Adverse Reactions: Allergies Allergy/AdvReac Type Severity Reaction Status Date / Time Penicillins Allergy Hives Verified 08/28/18 11:54 Home Medications: Ambulatory Orders Hydrocortisone 2.5% Topical Cr [Anusol-Hc -] 1 applic RC BID #1 tube 08/28/18 Anemia: No Asthma: No Cancer: (H/O BRAIN TUMOR) Cardiac Disorders: Yes CVA: No COPD: No CHF: No Dementia: Yes Diabetes: No GI Disorders: No Disorders: No HTN: Yes Hypercholesterolemia: Yes Liver Disease: No Seizures: Yes Thyroid Disease: No - Surgical History Abdominal Surgery: No Appendectomy: No Cardiac Surgery: No Cholecystectomy: No Lung Surgery: No Neurologic Surgery: No Orthopedic Surgery: Yes (left knee ARTHROSCOPY) - Immunization History Immunization Up to Date: Yes - Suicide/Smoking/Psychosocial Hx Smoking History: Unknown if ever smoked Have you smoked in the past 12 months: No If you are a former smoker, when did you quit?: 12 YEARS Hx Alcohol Use: No Drug/Substance Use Hx: No Substance Use Type: None Hx Substance Use Treatment: No Review of Systems - Review of Systems Integumentary: Yes: Pruritus, Rash *Physical Exam - Vital Signs Last Vital Signs Temp Pulse Resp BP Pulse Ox 98 F 76 16 117/89 99 08/28/18 11:58 08/28/18 11:58 08/28/18 11:58 08/28/18 11:58 08/28/18 11:58 - Physical Exam Comments: 08/28/18 12:45 HEAD: NC/AT EYES: Conjuntiva clear MS: Full ROM in all joints without edema NEUROLOGIC: No gross sensory or motor deficits, NVID SKIN: Normal color and temperature there is a scaly rash on the dorsum of bilateral hands between the first and second web spaces without indication of secondary infection Moderate Sedation - Procedure Monitoring Vital Signs: Procedure Monitoring Vital Signs Temperature 98 F 08/28/18 11:58 Pulse Rate 76 08/28/18 11:58 Respiratory Rate 16 01/18/19 11:58 Blood Pressure 117/89 01/18/19 11:58 O2 Sat by Pulse Oximetry (%) 99 08/28/18 11:58 *DC/Admit/Observation/Transfer Diagnosis at time of Disposition: Eczema - Discharge Dispostion Disposition: HOME Condition at time of disposition: Stable Decision to Admit order: No - Referrals Referrals: Lakia Grewal MD [Primary Care Provider] - - Patient Instructions Printed Discharge Instructions: Eczema Additional Instructions: Return to the emergency room should symptoms worsen or go unresolved. Please follow-up with dermatology in 2-3 days for further evaluation and treatment options. Please use the cream as directed. - Post Discharge Activity
== END 2018-08-28 12:53 | disposition home or self-care (01) ==
LOC: JERFT 11:43
DX: L30.8 Other specified dermatitis (principal); I10 Essential (primary) hypertension; E78.00 Pure hypercholesterolemia, unspecified; F03.90 Unspecified dementia, unspecified severity, without behavioral disturbance, psychotic disturbance, mood disturbance, and anxiety; Z86.011 Personal history of benign neoplasm of the brain
CPT/HCPCS: 99281-25

== ENCOUNTER 2022-08-04 11:22 | Emergency (ER) | payer OTHER ==
[2022-08-04 11:33] VITALS: BP 141/97; PULSE 90; RESP 18; TEMP 98; BMI 25.7
== END 2022-08-04 12:39 | disposition home or self-care (01) ==
LOC: JERFT 11:22 → JER 11:22 → JERFT 12:39
DX: H61.22 Impacted cerumen, left ear (principal)
CPT/HCPCS: 99281-25